=== PATIENT | female | born 1985 | race Hispanic/Latino ===

== ENCOUNTER 2021-02-23 05:37 | Inpatient (IN) | payer SELFPAY ==
[~2021-02-23] VITALS: Ht 160 cm; Wt 99.8 kg
[~2021-02-23 05:37] MED LIST: PREN-154 PO
[2021-02-23 06:00] VITALS: BP 117/78
[2021-02-23] MEDS ORDERED: METOCLOPRAMIDE 10 MG/2 ML VIAL IVP PRN (06:00)
[2021-02-23] MEDS ORDERED: LACTATED RINGERS 1000ML 1,000 ML IV SCH (06:00)
[2021-02-23] MEDS ORDERED: CITRIC ACID/SODIUM CITRATE 30 ML UDCUP PO PRN (06:00)
[2021-02-23] MEDS ORDERED: CEFAZOLIN SODIUM 1 GM VIAL IVP PRN (06:00)
[2021-02-23] MEDS ORDERED: PREN1TAB80 PO (06:32)
[2021-02-23 06:34] LABS: HEMATOCRIT 36.7 % (36-48); MEAN CORPUSCULAR HEMOGLOBIN 29.3 pg (27.0-33.0); MEAN CORPUSCULAR HGB CONC 33.2 g/dL (32.0-36.0); MEAN CORPUSCULAR VOLUME 88.2 fL (79-99); RED BLOOD CELL COUNT(AUTO) 4.16 MIL/uL (4.00-5.50); RED CELL DISTRIBUTION WIDTH 14.9 % (11.0-15.5); WHITE BLOOD COUNT (AUTO) 10.2 K/uL (4.8-10.8)
[2021-02-23] MEDS ORDERED: LACTATED RINGERS 1000ML 1,000 ML IV ONE (06:40)
[2021-02-23] MEDS ORDERED: EPINEPHRINE PF 1MG AMP ONE (07:16)
[2021-02-23] MEDS ORDERED: MORPHINE PF 100MG/10ML AMP IV ONE (07:16)
[2021-02-23] MEDS ORDERED: EPHEDRINE SULFATE 50 MG/ML AMPULE ONE (07:18)
[2021-02-23] MEDS ORDERED: CEFAZOLIN SODIUM 1 GM VIAL IVP ONE (07:54)
[2021-02-23] MEDS ORDERED: MIDAZOLAM HCL 1 MG/ML 2ML VIAL ONE (08:22)
[2021-02-23] MEDS ORDERED: OXYTOCIN 10 UNIT/1ML 10ML VIAL ONE (08:24)
[2021-02-23] MEDS ORDERED: ONDANSETRON 4MG INJ ONE (08:31)
[2021-02-23] MEDS: OXYTOCIN-LR 20 UNITS/1000 ML 1,000 ML IV SCH ×2 (08:50→11:39)
[2021-02-23] MEDS ORDERED: OXYTOCIN-LR 20 UNITS/1000 ML 1,000 ML IV PRN (09:00)
[2021-02-23] MEDS ORDERED: 0.9%NACL 10ML VIAL IVP PRN (09:00)
[2021-02-23 10:55] VITALS: BP 120/65
[2021-02-23 12:00] VITALS: BP 117/63
[2021-02-23] MEDS ORDERED: EPHEDRINE SULFATE 50 MG/ML AMPULE IVP PRN (12:30)
[2021-02-23] MEDS ORDERED: ONDANSETRON 4MG INJ IVP PRN (12:30)
[2021-02-23] MEDS ORDERED: NALOXONE HCL 0.4 MG/1 ML ML IVP PRN ×2 (12:30)
[2021-02-23] MEDS ORDERED: DiphenhydrAMINE HCL 50 MG/ML VIAL IVP PRN (12:30)
[2021-02-23] MEDS ORDERED: PREN-196 PO (14:48)
[2021-02-23 16:00] VITALS: BP 99/55
[2021-02-23] MEDS: PROMETHAZINE HCL 25 MG/ML 1ML AMPULE IM PRN ×2 (18:24→23:22)
[2021-02-23] MEDS: MEPERIDINE-PF 75 MG/ML SYG IM PRN ×2 (18:25→23:22)
[2021-02-23] MEDS: DEXTROSE 5 %-0.45 % NACL 1,000 ML IV PRN (18:26)
[2021-02-23 19:15] VITALS: BP 121/58
[2021-02-23 23:35] VITALS: BP 112/69
[2021-02-24] MEDS: DEXTROSE 5 %-0.45 % NACL 1,000 ML IV PRN ×2 (00:04→06:09)
[2021-02-24 04:27] VITALS: BP 107/56
[2021-02-24 06:25] LABS: HEMATOCRIT 29.9 % (36-48); MEAN CORPUSCULAR HEMOGLOBIN 29.3 pg (27.0-33.0); MEAN CORPUSCULAR HGB CONC 32.8 g/dL (32.0-36.0); MEAN CORPUSCULAR VOLUME 89.3 fL (79-99); RED BLOOD CELL COUNT(AUTO) 3.35 MIL/uL (4.00-5.50); WHITE BLOOD COUNT (AUTO) 11.3 K/uL (4.8-10.8)
[2021-02-24] MEDS ORDERED: HYDROCODONE/ACETAMINOPHEN 5/325 MG TAB PO PRN (08:00)
[2021-02-24] MEDS ORDERED: BISACODYL 10 MG SUPP.RECT RC PRN (08:00)
[2021-02-24] MEDS ORDERED: ACETAMINOPHEN 500 MG TABLET PO PRN (08:00)
[2021-02-24 08:14] LABS: HEPATITIS Bs ANTIGEN SCREEN P Negative (Negative)
[2021-02-24 08:35] VITALS: BP 119/67
[2021-02-24] MEDS: DOCUSATE SODIUM 100 MG CAP PO SCH ×2 (08:41→20:37)
[2021-02-24] MEDS: SIMETHICONE 80 MG TAB.CHEW PO PRN ×3 (08:41→20:37)
[2021-02-24] MEDS: IBUPROFEN 800 MG TAB PO SCH ×2 (09:00→16:54)
[2021-02-24 11:33] VITALS: BP 112/63
[2021-02-24] MEDS: ACETAMINOPHEN WITH CODEINE 1 TAB TAB PO PRN ×2 (12:03→22:55)
[2021-02-24 16:45] VITALS: BP 117/65
[2021-02-24 19:14] VITALS: BP 117/65
[2021-02-24 22:47] VITALS: BP 123/79
[2021-02-25] MEDS: IBUPROFEN 800 MG TAB PO SCH ×2 (01:09→09:19)
[2021-02-25 03:03] VITALS: BP 100/53
[2021-02-25 07:14] VITALS: BP 131/76
[2021-02-25] MEDS: DOCUSATE SODIUM 100 MG CAP PO SCH (09:18)
[2021-02-25] MEDS: SIMETHICONE 80 MG TAB.CHEW PO PRN (09:18)
[2021-02-25 11:11] VITALS: BP 99/51
== END 2021-02-25 13:05 | disposition home or self-care (01) | DRG 785 ==
LOC: LDH 05:37 → WSH 10:48
PROVIDERS: ADMIT Specialist; ATTEND Specialist
PROC: 0UB70ZZ Excision of Bilateral Fallopian Tubes, Open Approach (ICD-10-PCS; 2021-02-23)
PROC: 10D00Z1 Extraction of Products of Conception, Low, Open Approach (ICD-10-PCS; principal; 2021-02-23 07:30)
DX: O34.211 Maternal care for low transverse scar from previous cesarean delivery (principal); Z3A.39 39 weeks gestation of pregnancy; Z37.0 Single live birth; Z30.2 Encounter for sterilization; Z20.822 Contact with and (suspected) exposure to COVID-19
CPT/HCPCS: 36415; 59510; 85027; 86592; 86850; 86900; 86901; 87340; 87426; A4344; G0378; J0171; J0690; J2175; J2250; J2274; J2405; J2550; J2590; J3490; J7120